=== PATIENT | male | born 1945 | race Caucasian/White ===

== ENCOUNTER 2019-05-11 06:00 | Day surgery (SDC) | payer MEDICARE, BC ==
[2019-05-10 12:14] LABS: HEMATOCRIT 43.1 % (42.0-54.0); HEMOGLOBIN 14.4 g/dL (13.5-17.5); MCH 32.8 pg (26.0-34.0); MCHC 33.4 g/dL (31.0-37.0); MCV 98.2 fL (80.0-100.0); MEAN PLATELET VOLUME 9.1 fL (7.4-10.4); RBC 4.39 10x6/uL (4.20-6.10); RDW 13.1 % (11.5-14.5); WBC 5.9 10x3/uL (4.8-10.8)
[~2019-05-11] VITALS: Ht 177.8 cm; Wt 78.0 kg
[~2019-05-11 06:00] MED LIST: AFRIN15 ML NASAL; BAYER CHEWABLE81 MG PO; COREG25 MG PO; DILANTIN100 MG PO; EXCEDRIN EXTRA1 TAB PO; FISH OIL 1,0001 CA1 PO; NORVASC2.5 MG PO; NYQUIL D COLD295 ML; PLAVIX75 MG PO; PRAVACHOL20 MG PO
[2019-05-11 07:05] VITALS: BP 133/82; BMI 24.7
[2019-05-11 07:11] VITALS: BP 133/82; Ht 177.8 cm; Wt 78.0 kg
[2019-05-11] MEDS ORDERED: FLOMAX0.4 MG PO (09:54)
[2019-05-11] MEDS ORDERED: FUROSEMIDE20 MG PO (09:54)
[2019-05-11] MEDS ORDERED: HYDROCODON-ACE1 EAC7 PO (09:54)
--- NOTE | 2019-05-11 10:30 | NUR ---
REC'D FROM RR. FRIGHTENED LOOK ON PATIENT'S FACE AND HOLDING ONTO 'S HAND. JERKS AND APPEARS STARTLED IF NURSE TRIES TO MOVE EXTREMITY. ICE CHIPS AND GRAPE JUICE BROUGHT TO PT.
--- NOTE | 2019-05-11 11:00 | NUR ---
ICE PACK TAKEN TO PT AND PLACED IN AREA OF SURGICAL INCISIONS. FAMILY AT BEDSIDE. EAGING ICE CHIPS.
--- NOTE | 2019-05-11 11:30 | NUR ---
CHELLY ARREDONDOEliseo SERVED TO PATIENT.
--- NOTE | 2019-05-11 11:45 | NUR ---
AMBULATED TO BATHROOM AND VOIDED WITHOUT DIFFICULTY. TOLERATING FL DIET.
--- NOTE | 2019-05-11 12:15 | NUR ---
AMBULATED TO BATHROOM. VOIDING WITHOUT DIFFICULTY.
--- NOTE | 2019-05-11 12:25 | NUR ---
IV DC'D WITH CATHETER INTACT. WRITTEN AND VERBAL DC INST. GIVEN TO PT. VERBALIZED UNDERSTANDING.
--- NOTE | 2019-05-11 12:40 | NUR ---
DC'D HOME WITH FAMILY VIA PRIVATE VEHICLE. STABLE AT TIME OF DC.
== END 2019-05-11 12:40 | disposition home or self-care (01) ==
LOC: D.OPS 06:00
PROVIDERS: Anesthesiology; ATTEND Surgery
DX: K40.20 Bilateral inguinal hernia, without obstruction or gangrene, not specified as recurrent (principal); Z01.812 Encounter for preprocedural laboratory examination